=== PATIENT | male | born 1980 ===

== ENCOUNTER 2018-11-29 13:14 | Emergency (ER) | payer SELFPAY ==
[2018-11-29] MEDS ORDERED: Sodium Chloride 0.9% 1,000 ML IV ONE ×2 (13:37)
[2018-11-29 13:52] LABS: BASO % 0.3 % (0.0-2.0); EOS # 0.1 K/uL (0.0-0.7); EOS % 0.6 % (0.0-4.0); HEMOGLOBIN 15.9 g/dL (12.0-18.0); LYMPH % 18.7 % (20.0-40.0); MEAN CELL VOLUME 86.4 fL (80.0-94.0); MEAN CORPUSCULAR HEMOGLOBIN 29.6 pg (27.0-31.0); MEAN CORPUSCULAR HGB CONC 34.3 g/dL (33.0-37.0); MONO # 0.4 K/uL (0.0-0.8); MONO % 4.1 % (0.0-10.0); NEUT # 8.2 K/uL (1.8-7.0); NEUT % 76.3 % (50.0-75.0); RBC 5.37 Mil/uL (4.40-5.90); RED CELL DISTRIBUTION WIDTH 13.6 % (11.5-14.5); WHITE BLOOD COUNT 10.7 K/uL (4.8-10.8)
[2018-11-29] MEDS ORDERED: Sodium Chloride 0.9% 1,000 ML ONE (13:53)
[2018-11-29 14:08] LABS: ALB/GLOB RATIO 1.6 (1.0-2.1); ALBUMIN 4.8 g/dL (3.5-5.0); BLOOD UREA NITROGEN 12 mg/dL (9-20); CALCIUM 9.3 mg/dl (8.6-10.4); GFR NON-AFRICAN AMERICAN > 60; LIPASE 37 U/L (23-300)
[2018-11-29 14:09] LABS: ALT/SGPT 36 U/L (21-72); AST/SGOT 44 U/L (17-59)
--- NOTE | 2018-11-29 14:09 | C.PDOC ---
History Of Present Illness 38 y/o male presents to ED with chief complaint of right flank pain since earlier today, which he describes the pain as sharp and constant. Patient states he is unable to urinate. He denies fever, nausea, vomiting, or diarrhea. Time Seen by Provider: 11/29/18 13:19 Chief Complaint (Nursing): Abdominal Pain History Per: Patient History/Exam Limitations: no limitations Onset/Duration Of Symptoms: Hrs Current Symptoms Are (Timing): Still Present Past Medical History Reviewed: Historical Data, Nursing Documentation, Vital Signs Vital Signs: Last Vital Signs Temp 97.7 F 11/29/18 13:16 Pulse 75 11/29/18 13:16 Resp 20 11/29/18 13:16 BP 117/81 11/29/18 13:16 Pulse Ox 99 11/29/18 13:16 Family History: States: No Known Family Hx - Social History Hx Tobacco Use: No Hx Alcohol Use: No Hx Substance Use: No - Immunization History Hx Tetanus Toxoid Vaccination: No Hx Influenza Vaccination: No Hx Pneumococcal Vaccination: No Review Of Systems Except As Marked, All Systems Reviewed And Found Negative. Gastrointestinal: Positive for: Abdominal Pain (right flank pain). Negative for: Nausea, Vomiting, Diarrhea Physical Exam - Physical Exam Appears: Non-toxic, No Acute Distress Skin: Warm, Dry Head: Atraumatic, Normacephalic Eye(s): bilateral: Normal Inspection Oral Mucosa: Moist Neck: Supple Cardiovascular: Rhythm Regular, No Murmur Respiratory: Normal Breath Sounds, No Rales, No Rhonchi, No Wheezing Gastrointestinal/Abdominal: Soft, Tenderness (diffuse right flank tenderness) Back: CVA Tenderness Extremity: Bilateral: Atraumatic, Normal Color And Temperature, Normal ROM Neurological/Psych: Oriented x3, Normal Speech ED Course And Treatment - Laboratory Results Result Diagrams: 11/29/18 13:48 11/29/18 13:48 Lab Interpretation: No Acute Changes O2 Sat by Pulse Oximetry: 99 (RA) Pulse Ox Interpretation: Normal - CT Scan/US Abd/Pel CT Other Rad Studies (CT/US): Read By Radiologist, Radiology Report Reviewed CT/US Interpretation: Findings: Lung bases are clear. No pleural or pericardial effusion. Mild fatty infiltration of the liver. Gallbladder is preserved. Spleen is preserved. Adrenal glands are preserved. Pancreas is preserved. Upper abdominal bowel is preserved. Right kidney: Mild right renal hydroureteronephrosis with an obstructing 3 millimeter calculus in the distal right ureter near the ureterovesicular junction. Left Kidney: No gross calculi or hydronephrosis. Underdistended urinary bladder. Heterogeneous prostate with internal calcifications. Scattered areas of underdistention of the sigmoid and left hemicolon. Appendix is partially imaged, grossly preserved. Few shotty para-aortic and inguinal lymph nodes. Small fat containing left inguinal hernia. Degenerative changes in the spine. Few punctate bone islands in the right proximal femur. Prominent posterior disc osteophyte complex at the L5-S1 level. Impression: Mild right renal hydroureteronephrosis with obstructing 3 millimeter calculus in the distal right ureter proximal to the right ureterovesicular junction. Fatty infiltration of the liver. Additional findings as above. Progress Note: Pain is almost resolved Medical Decision Making Medical Decision Making: Plan: --Abd/Pel CT --Labs --Urine Culture --UA --IV fluids --Toradol 30 mg IVP --Zofran 4 mg IVP Disposition Counseled Patient/Family Regarding: Diagnosis, Need For Followup, Rx Given - Disposition Referrals: Jaylen García MD [Staff Provider] - Disposition: HOME/ ROUTINE Disposition Time: 15:02 Condition: STABLE Prescriptions: Ibuprofen [Motrin] 600 mg PO TID #20 tab Ondansetron ODT [Zofran ODT] 4 mg PO TID #12 odt oxyCODONE/Acetaminophen [Percocet 5/325 mg Tab] 1 ea PO TID #10 tab Tamsulosin HCl [Flomax] 0.4 mg PO DAILY #10 cap.er.24h Instructions: Renal Colic Forms: [facility] (Amharic), Work Excuse, General Discharge Instructions - Clinical Impression Clinical Impression: Ureteral colic - Scribe Statement The provider has reviewed the documentation as recorded by the Ladarius Mike Provider Attestation: All medical record entries made by the Varinderibcarissa were at my direction and personally dictated by me. I have reviewed the chart and agree that the record accurately reflects my personal performance of the history, physical exam, medical decision making, and the department course for this patient. I have also personally directed, reviewed, and agree with the discharge instructions and disposition.
--- NOTE | 2018-11-29 14:48 | CT ---
CT abdomen and pelvis HISTORY: Abdominal pain. COMPARISON: None available. TECHNIQUE: Multiple contiguous axial images were performed through the abdomen and pelvis without the use of intravenous contrast. Subsequently, sagittal and coronal reformatted images were obtained. This CT exam was performed using one or more of the following dose reduction techniques: Automated exposure control, adjustment of the mA and/or kV according to patient size, and/or use of iterative reconstruction technique. Findings: Lung bases are clear. No pleural or pericardial effusion. Mild fatty infiltration of the liver. Gallbladder is preserved. Spleen is preserved. Adrenal glands are preserved. Pancreas is preserved. Upper abdominal bowel is preserved. Right kidney: Mild right renal hydroureteronephrosis with an obstructing 3 millimeter calculus in the distal right ureter near the ureterovesicular junction. Left Kidney: No gross calculi or hydronephrosis. Underdistended urinary bladder. Heterogeneous prostate with internal calcifications. Scattered areas of underdistention of the sigmoid and left hemicolon. Appendix is partially imaged, grossly preserved. Few shotty para-aortic and inguinal lymph nodes. Small fat containing left inguinal hernia. Degenerative changes in the spine. Few punctate bone islands in the right proximal femur. Prominent posterior disc osteophyte complex at the L5-S1 level. Impression: Mild right renal hydroureteronephrosis with obstructing 3 millimeter calculus in the distal right ureter proximal to the right ureterovesicular junction. Fatty infiltration of the liver. Additional findings as above.
[2018-11-29 15:21] VITALS: BP 112/80; PULSE 71; RESP 18; TEMP 98; O2SAT 100
[2018-11-29 15:32] LABS: URINE BACTERIA RARE (<OCC)
[2018-11-29 15:33] LABS: URINE CLARITY Clear (Clear); URINE COLOR YELLOW (YELLOW)
[2018-11-29 15:34] LABS: URINE BILIRUBIN NEGATIVE (NEGATIVE); URINE BLOOD NEGATIVE (NEGATIVE); URINE GLUCOSE (UA) NEGATIVE (Normal); URINE LEUKOCYTE ESTERASE NEGATIVE Leu/uL (Negative); URINE PROTEIN NEGATIVE (NEGATIVE); URINE UROBILINOGEN 0.2 mg/dL (0.2-1.0)
== END 2018-11-29 15:50 | disposition home or self-care (01) ==
LOC: C.ER 13:14
DX: N13.2 Hydronephrosis with renal and ureteral calculous obstruction (principal)
CPT/HCPCS: 74176; 80053; 81001; 83690; 85025; 87086; 96361; 96374; 96375; 99284; J1885; J2405; J7030